=== PATIENT | male | born 1950 | race Caucasian/White ===

== ENCOUNTER 2016-10-28 12:31 | Inpatient (IN) | payer OTHER ==
[~2016-10-28] VITALS: Ht 167.6 cm; Wt 61.2 kg
[~2016-10-28 12:31] MED LIST: CLARITIN,ALAVAR10 MG PO; FLOMAX0.4 MG PO; GLIMEPIRIDE1 MG PO; Glimepiride PO; KEPPRA1000 MG PO; KEPPRA500 MG PO; LITE COAT ASPI325 M1 PO; MELATONIN5 M1 PO; METFORMIN HCL500 MG PO; NOVOLOG PE100 UNITS/ SC; PREVACID30 MG PO; SENNA8.6 MG PO; STOOL SOFTENER100 M1 PO; TYLENOL REGULA325 MG PO
[2016-10-28 15:28] LABS: HEMATOCRIT 40.1 % (38.0-50.0); MCH 29.3 PG (29.0-34.0); MCHC 32.9 G/DL (30.0-36.0); MCV 89.1 FL (86-99); MEAN PLAT.VOLUME 9.8 uM^3 (9.0-12.4); PLATELET COUNT 331 K/uL (156-360); RBC DIS.WIDTH-CV 13.2 % (11.8-14.6); RBC DIS.WIDTH-SD 43.2 % (39-53); WHITE BLOOD COUNT 12.3 K/uL (4.1-10.2)
[2016-10-28 15:41] LABS: CHLORIDE 99 mEq/L (99-109); POTASSIUM 3.7 mEq/L (3.7-5.4); SODIUM 139 mEq/L (136-147)
[2016-10-28 15:43] LABS: GLUCOSE 257 mg/dL (70-99)
[2016-10-28 15:44] LABS: ANION GAP 15 MEQ/L (2-14)
[2016-10-28 15:47] LABS: GFR ESTIMATE (CALCULATED) > 59 mL/min/
[2016-10-28 15:48] LABS: UREA NITROGEN (BUN) 6 mg/dL (9-23)
[2016-10-28 16:11] LABS: TROP-I INTERPRETATION NEGATIVE; TROPONIN-I < 0.01 ng/mL (0.0-0.30)
[2016-10-28 16:45] LABS: TOTAL BILIRUBIN 1.8 mg/dL (0.0-1.0)
[2016-10-28 16:46] LABS: ALKALINE PHOSPHATASE 207 IU/L (3-129)
[2016-10-28 16:49] LABS: DIRECT BILIRUBIN 1.2 mg/dL (0.0-0.3)
[2016-10-28 16:50] LABS: LIPASE 27 U/L (1.0-51.0)
[2016-10-28 20:19] LABS: ADD MIUA? YES; BILIRUBIN NEGATIVE; BLOOD SMALL; COLOR COLORLESS ((YELLOW)); GLUCOSE (STRIP) 50; KETONES 20; LEUKOCYTES NEGATIVE; NITRITE NEGATIVE; PROTEIN (STRIP) NEGATIVE; UROBILINOGEN 0.2 MG/DL (0.2-1.0)
[2016-10-28 20:25] LABS: BACTERIA NONE SEEN /HPF; EPITHELIAL CELLS NONE SEEN /HPF; MUCUS NONE SEEN /LPF; RED BLOOD CELLS 0-5 /HPF (0-5); UCUL ADDED? NO; WHITE BLOOD CELLS 0-5 /HPF (0-5)
[2016-10-28] MEDS ORDERED: METFORMIN HCL500 M4 PO (21:09)
[2016-10-28] MEDS ORDERED: ZYRTEC10 M3 PO (21:09)
[2016-10-28] MEDS ORDERED: ACIDOPHILUS LA1 EAC1 PO (21:10)
[2016-10-28] MEDS ORDERED: ULTRAM50 MG PO (21:10)
[2016-10-28] MEDS ORDERED: GLIMEPIRIDE1 MG PO ×3 (21:10→21:11)
[2016-10-28] MEDS ORDERED: VITAMIN D31000 UNIT PO (21:11)
[2016-10-28] MEDS ORDERED: GABAPENTIN300 MG PO (21:12)
[2016-10-28] MEDS ORDERED: CALCIUM 500 MG1 EACH PO (21:12)
[2016-10-28] MEDS ORDERED: B COMPLEX #11 EACH PO (21:12)
[2016-10-28] MEDS ORDERED: IRON325 M1 PO (21:12)
[2016-10-28] MEDS ORDERED: ASCORBIC ACID500 M3 PO (21:13)
[2016-10-28] MEDS ORDERED: ONE-A-DAY ESSE1 EAC1 PO (21:13)
[2016-10-28] MEDS ORDERED: SILVADENE20 GM TP (21:13)
[2016-10-29 00:26] VITALS: BP 133/71
[2016-10-29 03:25] VITALS: BP 135/68
[2016-10-29 06:17] LABS: POINT-OF-CARE METER ID UU13113725
[2016-10-29 07:36] VITALS: BP 134/75
[2016-10-29 09:47] LABS: HEMATOCRIT 34.9 % (38.0-50.0); MCH 30.3 PG (29.0-34.0); MCHC 33.8 G/DL (30.0-36.0); MCV 89.5 FL (86-99); MEAN PLAT.VOLUME 10.2 uM^3 (9.0-12.4); PLATELET COUNT 287 K/uL (156-360); RBC DIS.WIDTH-CV 13.7 % (11.8-14.6); RBC DIS.WIDTH-SD 44.4 % (39-53); WHITE BLOOD COUNT 10.1 K/uL (4.1-10.2)
[2016-10-29 10:10] LABS: ALKALINE PHOSPHATASE 180 IU/L (3-129); ANION GAP 14 MEQ/L (2-14); CHLORIDE 102 MEQ/L (99-109); GFR ESTIMATE (CALCULATED) > 59 mL/min/; GLUCOSE 148 mg/dL (70-99); POTASSIUM 3.2 MEQ/L (3.7-5.4); SAMPLE HEMOLYSIS CHECK 0; SAMPLE ICTERIC CHECK 0; SAMPLE LIPEMIA CHECK 0; SODIUM 139 MEQ/L (136-147); TOTAL BILIRUBIN 0.9 MG/DL (0.0-1.0); UREA NITROGEN (BUN) 3 mg/dL (9-23)
[2016-10-29 11:13] VITALS: BP 140/82
[2016-10-29 15:53] LABS: POINT-OF-CARE METER ID UU13113819
[2016-10-29 17:53] VITALS: BP 144/81
[2016-10-29 20:11] VITALS: BP 128/72
[2016-10-30 00:59] VITALS: BP 119/70
[2016-10-30 01:32] LABS: POINT-OF-CARE METER ID UU13113725
[2016-10-30 04:40] VITALS: BP 114/64
[2016-10-30 07:10] VITALS: BP 123/69
[2016-10-30 09:03] LABS: HEMATOCRIT 32.9 % (38.0-50.0); MCH 29.8 PG (29.0-34.0); MCHC 33.1 G/DL (30.0-36.0); MCV 89.9 FL (86-99); MEAN PLAT.VOLUME 9.9 uM^3 (9.0-12.4); PLATELET COUNT 268 K/uL (156-360); RBC DIS.WIDTH-CV 13.5 % (11.8-14.6); RBC DIS.WIDTH-SD 44.4 % (39-53); RED BLOOD COUNT 3.66 M/uL (4.00-5.50); WHITE BLOOD COUNT 9.3 K/uL (4.1-10.2)
[2016-10-30 10:10] LABS: ALKALINE PHOSPHATASE 188 IU/L (3-129); ANION GAP 11 MEQ/L (2-14); CHLORIDE 108 MEQ/L (99-109); GFR ESTIMATE (CALCULATED) > 59 mL/min/; GLUCOSE 156 mg/dL (70-99); POTASSIUM 3.3 MEQ/L (3.7-5.4); SAMPLE HEMOLYSIS CHECK 0; SAMPLE ICTERIC CHECK 0; SAMPLE LIPEMIA CHECK 0; SODIUM 144 MEQ/L (136-147); UREA NITROGEN (BUN) 5 mg/dL (9-23)
[2016-10-30 10:11] LABS: TOTAL BILIRUBIN 0.6 MG/DL (0.0-1.0)
[2016-10-30 11:23] LABS: POINT-OF-CARE METER ID UU13113725
[2016-10-30 16:33] VITALS: BP 119/67
[2016-10-30 20:00] VITALS: BP 116/64
[2016-10-31] VITALS: BP 118/68
[2016-10-31 04:00] VITALS: BP 124/71
[2016-10-31 07:13] LABS: ALKALINE PHOSPHATASE 171 IU/L (3-129); ALKALINE PHOSPHATASE 177 IU/L (3-129); ANION GAP 10 MEQ/L (2-14); CHLORIDE 106 MEQ/L (99-109); DIRECT BILIRUBIN 0.2 mg/dL (0.0-0.3); GFR ESTIMATE (CALCULATED) > 59 mL/min/; GLUCOSE 153 mg/dL (70-99); LIPASE 62 U/L (1.0-51.0); MAGNESIUM 1.5 mg/dl (1.3-2.7); POTASSIUM 2.9 MEQ/L (3.7-5.4); SAMPLE HEMOLYSIS CHECK 0; SAMPLE ICTERIC CHECK 0; SAMPLE LIPEMIA CHECK 0; SODIUM 142 MEQ/L (136-147); TOTAL BILIRUBIN 0.5 MG/DL (0.0-1.0); UREA NITROGEN (BUN) 3 mg/dL (9-23)
[2016-10-31 07:38] LABS: HEMATOCRIT 34.5 % (38.0-50.0); MCH 29.9 PG (29.0-34.0); MCV 90.6 FL (86-99); MEAN PLAT.VOLUME 10.2 uM^3 (9.0-12.4); PLATELET COUNT 302 K/uL (156-360); RBC DIS.WIDTH-CV 13.8 % (11.8-14.6); RBC DIS.WIDTH-SD 45.4 % (39-53); RED BLOOD COUNT 3.81 M/uL (4.00-5.50); WHITE BLOOD COUNT 8.6 K/uL (4.1-10.2)
[2016-10-31 08:39] VITALS: BP 133/74
[2016-10-31 11:06] LABS: INTER. NORMALIZED RATIO 1.2; PROTHROMBIN TIME 12.1 (9.2-11.2); PTT 40.1 (25-32)
[2016-10-31] MEDS ORDERED: LEVAQUIN500 MG PO (14:09)
[2016-10-31 21:22] LABS: POINT-OF-CARE METER ID UU13113725
[2016-10-31 23:25] VITALS: BP 119/68
[2016-11-01 06:07] LABS: POINT-OF-CARE METER ID UU13113725
[2016-11-01 08:51] LABS: C DIFF TOXIN NEGATIVE (NEGATIVE); PROBE CHECK PASS; SPECIMEN PROCESSING CONTROL PASS
[2016-11-01] MEDS ORDERED: IMODIUM A-D2 M2 PO (09:24)
[2016-11-01 09:49] LABS: HEMATOCRIT 35.9 % (38.0-50.0); MCH 28.7 PG (29.0-34.0); MCV 89.5 FL (86-99); MEAN PLAT.VOLUME 9.7 uM^3 (9.0-12.4); PLATELET COUNT 290 K/uL (156-360); RBC DIS.WIDTH-CV 13.6 % (11.8-14.6); RBC DIS.WIDTH-SD 44.8 % (39-53); RED BLOOD COUNT 4.01 M/uL (4.00-5.50); WHITE BLOOD COUNT 9.1 K/uL (4.1-10.2)
[2016-11-01 10:15] LABS: ANION GAP 10 MEQ/L (2-14); CHLORIDE 104 MEQ/L (99-109); GFR ESTIMATE (CALCULATED) > 59 mL/min/; GLUCOSE 201 mg/dL (70-99); POTASSIUM 3.5 MEQ/L (3.7-5.4); SAMPLE HEMOLYSIS CHECK 0; SAMPLE ICTERIC CHECK 0; SAMPLE LIPEMIA CHECK 0; SODIUM 140 MEQ/L (136-147); UREA NITROGEN (BUN) 3 mg/dL (9-23)
[2016-11-01] MEDS ORDERED: K-DUR20 MEQ PO (10:24)
== END 2016-11-01 12:32 | disposition home or self-care (01) | DRG 446 ==
LOC: EME 12:31 → EDOF 22:29 → 5EAST 22:29 → EDOF 22:29 → 5EAST 10-29 00:11
PROVIDERS: Emergency Medicine; Internal Medicine; Specialist; Surgery
DX: K80.71 Calculus of gallbladder and bile duct without cholecystitis with obstruction (principal); E11.9 Type 2 diabetes mellitus without complications; N40.0 Benign prostatic hyperplasia without lower urinary tract symptoms; K21.9 Gastro-esophageal reflux disease without esophagitis; D64.9 Anemia, unspecified; E87.6 Hypokalemia; G40.909 Epilepsy, unspecified, not intractable, without status epilepticus; R19.7 Diarrhea, unspecified; Z79.82 Long term (current) use of aspirin; Z89.512 Acquired absence of left leg below knee; Z79.84 Long term (current) use of oral hypoglycemic drugs; Z85.118 Personal history of other malignant neoplasm of bronchus and lung; Z85.830 Personal history of malignant neoplasm of bone; Z90.2 Acquired absence of lung [part of]
CPT/HCPCS: 71020; 71275; 74177; 74330; 80048; 80053; 80076; 81003; 82948; 83690; 83735; 84100; 84132 91; 84484; 85027; 85610; 85730; 87081; 87493; 87506; 93005; 94799; 99281; 99285; C1757; C1769; C2625; G0378; J0744; J1100; J1644; J1815; J2405; J2997; J3010; J3480; J7030; S0028; S0030

== ENCOUNTER 2016-11-03 23:26 | Inpatient (IN) | payer OTHER ==
[~2016-11-03] VITALS: Ht 167.6 cm; Wt 60.6 kg
[~2016-11-03 23:26] MED LIST changes: +ACIDOPHILUS LA1 EAC1 PO; +ASCORBIC ACID500 M3 PO; +B COMPLEX #11 EACH PO; +CALCIUM 500 MG1 EACH PO; +GABAPENTIN300 MG PO; +IMODIUM A-D2 M2 PO; +IRON325 M1 PO; +K-DUR20 MEQ PO; +LEVAQUIN500 MG PO; +METFORMIN HCL500 M4 PO; +ONE-A-DAY ESSE1 EAC1 PO; +SILVADENE20 GM TP; +ULTRAM50 MG PO; +VITAMIN D31000 UNIT PO; +ZYRTEC10 M3 PO
[2016-11-04 00:16] LABS: MCH 29.1 PG (29.0-34.0); MCHC 32.7 G/DL (30.0-36.0); MCV 88.9 FL (86-99); MEAN PLAT.VOLUME 9.5 uM^3 (9.0-12.4); PLATELET COUNT 346 K/uL (156-360); RBC DIS.WIDTH-CV 13.8 % (11.8-14.6); RBC DIS.WIDTH-SD 45.1 % (39-53); RED BLOOD COUNT 4.16 M/uL (4.00-5.50); WHITE BLOOD COUNT 21.9 K/uL (4.1-10.2)
[2016-11-04 00:44] LABS: ALKALINE PHOSPHATASE 130 IU/L (3-129); ANION GAP 14 MEQ/L (2-14); CHLORIDE 100 MEQ/L (99-109); GFR ESTIMATE (CALCULATED) > 59 mL/min/; GLUCOSE 196 mg/dL (70-99); POTASSIUM 3.8 MEQ/L (3.7-5.4); SAMPLE HEMOLYSIS CHECK 0; SAMPLE ICTERIC CHECK 0; SAMPLE LIPEMIA CHECK 0; SODIUM 137 MEQ/L (136-147); TOTAL BILIRUBIN 0.5 MG/DL (0.0-1.0); UREA NITROGEN (BUN) 9 mg/dL (9-23)
[2016-11-04 01:15] LABS: ADD MIUA? YES; BILIRUBIN NEGATIVE; BLOOD MODERATE; COLOR YELLOW ((YELLOW)); GLUCOSE (STRIP) NEGATIVE; KETONES 20; LEUKOCYTES NEGATIVE; NITRITE NEGATIVE; PROTEIN (STRIP) 100; SPECIFIC GRAVITY 1.017 (1.000-1.030); UROBILINOGEN 0.2 MG/DL (0.2-1.0)
[2016-11-04 01:45] LABS: BACTERIA NONE SEEN /HPF; EPITHELIAL CELLS NONE SEEN /HPF; HYALINE CASTS 0-5 /LPF; MUCUS TRACE /LPF; RED BLOOD CELLS 30-40 /HPF (0-5); UCUL ADDED? NO; WHITE BLOOD CELLS 0-5 /HPF (0-5)
[2016-11-04 04:46] VITALS: BP 111/59
[2016-11-04 05:37] LABS: LIPASE 64 U/L (1.0-51.0)
[2016-11-04 12:01] VITALS: BP 136/65
[2016-11-04 16:13] VITALS: BP 118/77
[2016-11-04 17:07] VITALS: BP 133/69
[2016-11-04 19:21] VITALS: BP 124/70
[2016-11-04 21:43] LABS: POINT-OF-CARE METER ID UU14208750
[2016-11-04 23:04] VITALS: BP 138/59
[2016-11-05 03:28] VITALS: BP 117/65
[2016-11-05 06:38] LABS: POINT-OF-CARE METER ID UU14208750
[2016-11-05 07:03] VITALS: BP 117/67
[2016-11-05 10:06] LABS: HEMATOCRIT 30.7 % (38.0-50.0); MCH 29.2 PG (29.0-34.0); MCHC 32.6 G/DL (30.0-36.0); MCV 89.5 FL (86-99); MEAN PLAT.VOLUME 9.6 uM^3 (9.0-12.4); PLATELET COUNT 290 K/uL (156-360); RBC DIS.WIDTH-CV 13.8 % (11.8-14.6); RBC DIS.WIDTH-SD 45.5 % (39-53); RED BLOOD COUNT 3.43 M/uL (4.00-5.50); WHITE BLOOD COUNT 14.6 K/uL (4.1-10.2)
[2016-11-05 10:30] LABS: ANION GAP 10 MEQ/L (2-14); CHLORIDE 100 MEQ/L (99-109); GFR ESTIMATE (CALCULATED) > 59 mL/min/; GLUCOSE 75 mg/dL (70-99); POTASSIUM 3.3 MEQ/L (3.7-5.4); SAMPLE HEMOLYSIS CHECK 0; SAMPLE ICTERIC CHECK 0; SAMPLE LIPEMIA CHECK 0; SODIUM 139 MEQ/L (136-147); UREA NITROGEN (BUN) 5 mg/dL (9-23)
[2016-11-05 12:09] VITALS: BP 118/72
[2016-11-05 12:27] LABS: POINT-OF-CARE METER ID UU14208750
[2016-11-05 15:51] VITALS: BP 111/66
[2016-11-05 15:59] LABS: HEMATOCRIT 29.9 % (38.0-50.0); MCH 29.8 PG (29.0-34.0); MCHC 33.1 G/DL (30.0-36.0); MCV 90.1 FL (86-99); MEAN PLAT.VOLUME 9.4 uM^3 (9.0-12.4); PLATELET COUNT 288 K/uL (156-360); RBC DIS.WIDTH-CV 13.8 % (11.8-14.6); RBC DIS.WIDTH-SD 46.2 % (39-53); RED BLOOD COUNT 3.32 M/uL (4.00-5.50); WHITE BLOOD COUNT 13.4 K/uL (4.1-10.2)
[2016-11-05 18:58] LABS: POINT-OF-CARE METER ID UU13113675; POINT-OF-CARE USER ID ADMSLT55
[2016-11-05 20:25] VITALS: BP 124/71
[2016-11-06 00:12] VITALS: BP 130/60
== END 2016-11-06 01:05 | disposition short-term general hospital (02) | DRG 854 ==
LOC: EME 23:26 → EDOF 11-04 03:28 → 2EAST 11-04 03:28
PROVIDERS: Physician Assistant Surgical; Surgery
DX: A41.9 Sepsis, unspecified organism (principal); S36.13XA Injury of bile duct, initial encounter; K80.12 Calculus of gallbladder with acute and chronic cholecystitis without obstruction; K82.8 Other specified diseases of gallbladder; E11.9 Type 2 diabetes mellitus without complications; K21.9 Gastro-esophageal reflux disease without esophagitis; K66.0 Peritoneal adhesions (postprocedural) (postinfection); Z79.82 Long term (current) use of aspirin; Z79.84 Long term (current) use of oral hypoglycemic drugs; Z79.899 Other long term (current) drug therapy; Z85.830 Personal history of malignant neoplasm of bone; I95.9 Hypotension, unspecified; K92.1 Melena; R00.0 Tachycardia, unspecified; K91.81 Other intraoperative complications of digestive system; Y65.8 Other specified misadventures during surgical and medical care; Y92.234 Operating room of hospital as the place of occurrence of the external cause
CPT/HCPCS: 71010; 74301; 76705; 80048; 80053; 81003; 82948; 83605; 83690; 85027; 87040; 94760; 94799; 99281; 99284; J0131; J0330; J0692; J1100; J1170; J2405; J2543; J2710; J3010; J3370; J7030; J7050; J7120